=== PATIENT | female | born 1960 | race Caucasian/White ===

== ENCOUNTER 2019-08-09 21:22 | Emergency (ER) | payer BC, OTHER ==
--- OUTSIDE RECORDS SUMMARY | 2019-08-09 21:25 | XMS REPORT | Continuity of Care Document ---
:1960 Author Organization [employer] Care Team Providers Name Role Phone [employer] Unavailable Un available Problems Problem Status Onset Classification Date Comments Sourc e Date Reported K21.9 Active 11/19/19 [facility] 17 [place] V76.11 - SCREEN Active 12/26/19 MH O PID MAMMOGRA 13 [place] Laparoscopic Active 01/08/20 Problem 12/06/2016 adjustable gastric 12 [place],M banding H OPID (procedure) [place] Cholecystectomy Active Problem 12/06/2016 MH (procedure) [place],M H OPID [place] Diabetes mellitus Active Problem 12/06/2016 M H (disorder) [facility] ,M H OPID [place] Hypothyroidism Active Problem 12/06/2016 MH (disorder) [facility] ,M H OPID [place] Polycystic ovaries Active Problem 12/06/2016 MH (disorder) [facility] ,M H OPID [place] Medications No Data Provided for This Section Allergies, Adverse Reactions, Alerts Substance Category Reaction Severity Reaction Status Date Comments S ource type Reported codeine Assertion Drug Active allergy [place] Latex Assertion Drug Active allergy [place] penicillins Assertion Drug Active allergy [place] Immunizations No Data Provided for This Section Results No Data Provided for This Section Pathology Reports No Data Provided for This Section Diagnostic Reports Report Value Date Source Barium swallow DX Barium swallow DX 12/03/2016 [facility] CLINICAL HISTORY: 0.6 minute s fluoro time/97.50 mGy - K21.9 Gastro-esophageal reflux disease without esophagitis. COMPARISON: None TECHNIQUE: Thin barium was a dministered with the patient in the upright position and fluoroscopic and video images performed in AP and oblique projections. Bookbinder Chief study demonstrates nor mal orientation and position of the lap band catheter. Phi angle is calculated at 48 degrees on the fluoroscopic spot view but 64 degrees (normal range 4 - 58 degrees) FINDINGS: Patient ingested s oscar contrast barium without difficulty and there is no significant delay in passage of barium from the oropharynx into the distal esophagus. No significant delay in passage of barium past the lap band catheter. There is no dilation of the proximal pouch. IMPRESSION: No fluoroscopic evidence to suggest lap band sli ppage. SL: [id number] Consultation Notes No Data Provided for This Section Discharge Summaries No Data Provided for This Section History and Physicals No Data Provided for This Section Vital Signs No Data Provided for This Section Encounters Location Location Encounter Encounter Reason Attending ADM DC Stat us Source Details Type Number For Provider Date Date Visit [facility] Outpatient [id number] Andrea 12/03 12/04 Maulik Avilais [facility] Procedures No Data Provided for This Section Assessment and Plan No Data Provided for This Section Plan of Care No Data Provided for This Section Social History Social History Date Source No data available for this 12/04/2016 [facility] section Family History No Data Provided for This Section Advance Directives No Data Provided for This Section Functional Status No Data Provided for This Section
--- OUTSIDE RECORDS SUMMARY | 2019-08-09 21:25 | XMS REPORT | Summary of Care ---
:1960 Author Organization [facility] Address [address] [place] [address] Care Team Providers Name Role Phone Pcp, Does Not Have A Primary Care Provider Reason for Visit Reason Comments Refill Request Encounter Details Date Type Department Care Team Description 05/29/2019 Refill [facility] Endocrinology- Doctor Toro mejia, No Refill Request [place] Name Professional [facility] Building [address] [place] [address] [place] [address] [address] [place] [address] Allergies Active Allergy Reactions Severity Noted Date Comments Ciprofloxacin Nausea and/or Vomiting 06/18/2013 Codeine Other - See comments 02/01/2011 FElT SP ACEY Latex Hives 05/17/2011 Penicillins Other - See comments 11/11/2014 Makes s calp burn documented as of this encounter (statuses as of 05/31/2019) Medications Medication Sig Dispensed Refills Start Date End Date Status aspirin 81 mg Take 81 mg by 0 Ac tive tablet mouth daily. Cetirizine (ZYRTEC) Take by 0 Active 10 mg Cap mouth. magnesium oxide 0 06/29/2015 Act bibi (MAG-OX 400) 400 mg tabletIndications: Type 2 diabetes mellitus without complications, Hypothyroidism, unspecified hypothyroidism type, HLD (hyperlipidemia) FLUTICASONE Use in each 0 Activ e PROPIONATE (FLONASE nostril. NASAL) Insulin [place], Use 1 needle 1 Box 3 05/01/2018 Active Disposable, (RICARDO daily PEN NEEDLE) 32 gauge x 5/32" NdleIndications: Type 2 diabetes mellitus without complication, with long-term current use of insulin ONETOUCH ULTRA BLUE Use as 300 Strip 1 10/26/2018 Active TEST STRIP strip directed, TID, DX:E11.9 blood sugar Use as 200 Strip 2 10/28/2018 Active diagnostic directed TID (FREESTYLE LITE DX: E11.9 STRIPS) strip metFORMIN 500 mg TAKE 2 360 tablet 1 02/17/2019 A ctive tabletIndications: TABLETS TWICE Type 2 diabetes A DAY WITH mellitus without MEALS complication, with long-term current use of insulin NATEGLINIDE 120 mg TAKE 1 TABLET 270 tablet 3 04/27/2019 Active tabletIndications: THREE TIMES A Type 2 diabetes DAY BEFORE mellitus without MEALS complication, with long-term current use of insulin LANTUS SOLOSTAR inject 32 30 mL 1 05/05/2019 Act bibi U-100 INSULIN 100 Units under unit/mL (3 mL) the skin injectionIndication daily. s: Type 2 diabetes mellitus without complication, with long-term current use of insulin levothyroxine 150 Take 1 tablet 90 tablet 0 05/31/2019 Active mcg by mouth tabletIndications: every Hypothyroidism, morning. unspecified type levothyroxine 150 Take 1 tablet 90 tablet 0 03/19/2019 0 Discontinued mcg by mouth 20 (Reorder) tabletIndications: every Hypothyroidism, morning. 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 documented as of this encounter Last Filed Vital Signs Not on filedocumented in this encounter Plan of Treatment Date Type Specialty Care Team Description 09/24/2019 Office Visit Endocrinology Diabetes & Deepak William MD Metabolism [address] [address] 15 [phone] Health Maintenance Due Date Last Done Comments HEPATITIS C (HCV) SCREEN 1960 PNEUMOCOCCAL 0-64 YEARS COMBINED 12/04/1965 SERIES (1 of 1 - PPSV23) EYE EXAM 12/04/1969 DTaP,Tdap,and Td Vaccines (1 - 12/04/1970 Tdap) PAP SMEAR 12/04/1980 Breast Cancer Screening 1999 (MAMMOGRAM) COLONOSCOPY 12/04/2009 Zoster Recombinant Vaccine 12/04/2009 (SHINGRIX) (1 of 2) INFLUENZA VACCINE (#1) 2018 HgA1C 07/24/2019 01/22/2019, 09/18/2018, 05/01/2018, Additional history exists CREATININE (SERUM) 03/24/2020 03/24/2019, 10/24/2017, 02/28/2015, Additional history exists LDL-C 03/24/2020 03/24/2019, 10/24/2017, 02/28/2015, Additional history exists URINE MICROALBUMIN 03/24/2020 03/24/2019, 10/24/2017, 02/28/2015, Additional history exists FOOT EXAM 05/20/2020 05/21/2019, 05/21/2019, 01/22/2019, Additional history exists documented as of this encounter Results Not on filedocumented in this encounter Visit Diagnoses Diagnosis Hypothyroidism, unspecified type documented in this encounter Insurance Payer Benefit Plan / Group Subscriber ID Effective Dates Phone Address Type [employer] [id number] 2019-Present PPO documented as of this encounter Advance Directives Type Date Recorded 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
--- OUTSIDE RECORDS SUMMARY | 2019-08-09 21:25 | XMS REPORT | Continuity of Care Document ---
:1960 Author Organization [facility] t Address [address] [place] [address] Care Team Providers Name Role Phone Sid JENSEN, H Attending Clinician Doctor Unassigned, Name Attending Clinician Unavailable Delilah Sharma Attending Clinician Problems Condition Condition Condition Status Onset Resolution Last Treating Co mments Source Name Details Category Date Date Treatment Clinician Date K21.9 Diagnosis Active 2016-022016-12-03 Mem oria 0-09 13:39:00 l K21.9 00:00: [place] 00 Active 11/18/2016 [place] V76.11 - Diagnosis Active 2012-022013-10-04 M emoria SCREEN - 02:11:00 l MAMMOGRA V76.11 - 00:01: Herm carlos alberto SCREEN 00 MAMMOGRA Active 12/25/2012 BRIAN Aspen Laparoscop Problem Active 2011-022016-12-06 M emoria ic 03-09 00:53:51 l adjustable 00:00: Shane n gastric Laparoscop 00 banding ic (procedure adjustable ) gastric banding (procedure ) Active 01/08/2012 Problem 12/06/2016 [facility] OPIConnie Aspen Cholecyste Problem Active 2016-12-06 M emoria ctomy 00:53:51 l (procedure Shane n ) Cholecyste ctomy (procedure ) Active Problem 12/06/2016 [facility] BRIAN Aspen Diabetes Problem Active 2016-12-06 Mem oria mellitus 00:53:51 l (disorder) Diabetes He rmann mellitus (disorder) Active Problem 12/06/2016 [facility] Hypothyroi Problem Active 2016-12-06 M emoria dism 00:53:51 l (disorder) Shane peralta Hypothyroi dism (disorder) Active Problem 12/06/2016 [facility] Polycystic Problem Active 2016-12-06 M emoria ovaries 00:53:51 l (disorder) Shane peralta Polycystic ovaries (disorder) Active Problem 12/06/2016 [facility] BRIAN Aspen Allergies, Adverse Reactions, Alerts Allergy Allergy Status Severity Reaction(s) Onset Inactive Treating Comm ents Source Name Type Date Date Clinician codeine codeine Active Memoria l Maulik Latex Latex Active Memoria l Maulik penicill penicill Active Memori a ins ins l Maulik Social History Social Habit Start Date Stop Date Quantity Comments Source Social History 2016-12-04 2016-12-04 [facility] patrica 04:59:00 04:59:00 Medications This patient has no known medications. Procedures This patient has no known procedures. Encounters Start End Encounter Admission Attending Care Care Encounter Source Date/Time Date/Time Type Type Clinicians Facility Department ID 2019-07-26 2019-07-26 Refill Sid [facility] [id number] 00:00:00 00:00:00 Deepak Santacruz [id number] [place] [id number] Professio [phone] [facility] 2019-05-29 2019-05-29 Refill Doctor [facility] [id number] 00:00:00 00:00:00 Unassigned, Noam [id number] [place] [id number] Professio [phone] [facility] 2019-05-21 2019-05-21 Telemedici Sid [facility] [id number] 08:13:54 17:11:34 ne Visit Deepak Santacruz [id number] [place] [id number] Professio [phone] [facility] 2019-05-05 2019-05-05 Patient Sid IDIGLESIA [id number] 00:00:00 00:00:00 Secure Msg Deepak Santacruz [id number] [place] [id number] Professio [phone] [facility] 2019-04-28 2019-04-28 Patient Sid [facility] [id number] 00:00:00 00:00:00 Secure Msg Deepak Santacruz [id number] [place] [id number] Professio [phone] [facility] 2019-04-26 2019-04-26 [facility] [id number] 00:00:00 00:00:00 Deepak Santcaruz [id number] [place] [id number] Professio [phone] [address] 2019-03-24 2019-03-24 Orders ROBIN Lau [id number] 00:00:00 00:00:00 Only Deepak H AMBER [id number] [facility]PITAL [phone] [id number] 2019-03-17 2019-03-17 [facility] [id number] 00:00:00 00:00:00 Deepak Santacruz [id number] [place] [id number] Professio [phone] [address] 2019-03-04 2019-03-04 Orders Doctor KELLY [id number] 00:00:00 00:00:00 Only Unassigned, AMBER [id number] [place] [facility] [phone] [id number] 2018-10-30 2018-10-30 Telephone Sid [facility] [id number] 00:00:00 00:00:00 Deepak Santacruz [id number] [place] [id number] Professio [phone] [facility] 2018-10-28 2018-10-28 Telephone Sid [facility] [id number] 00:00:00 00:00:00 Deepak Santacruz [id number] [place] [id number] Professio [phone] [address] 2018-10-23 2018-10-23 [facility] [id number] 00:00:00 00:00:00 Deepak Santacruz [id number] [place] [id number] Professio [phone] [address] 2018-10-22 2018-10-22 [facility] [id number] 00:00:00 00:00:00 Deepak Santacruz [id number] [place] [id number] Professio [phone] [address] 2018-10-15 2018-10-15 [facility] [id number] 00:00:00 00:00:00 Deepak Santacruz [id number] [place] [id number] Professio [phone] [address] 2018-09-18 2018-09-18 [facility] [id number] 15:33:10 17:19:59 Visit Deepak Santacruz [id number] [place] [id number] Professio [phone] [address] 2016-12-03 2016-12-03 Outpatient KORY Sharma [place] [id number] 13:32:00 23:59:00 Andrea Mazariegos 2012-12-23 2012-12-23 Outpatient YESIKAIE YESIKAIE [id number] [facility] 10:29:00 23:59:00 02 Outpat i ent Imaging [place] d Results This patient has no known results.
--- OUTSIDE RECORDS SUMMARY | 2019-08-09 21:25 | XMS REPORT | Summary of Care ---
:1960 Author Organization [facility] Address [address] [place] [address] Care Team Providers Name Role Phone Pcp, Does Not Have A Primary Care Provider Reason for Visit Reason Comments Diabetes Mellitus II Encounter Details Date Type Department Care Team Description 05/21/2019 Telemedicine Visit [facility] Deepak Lau Type 2 diabetes mellitus without complication, with long-term current use of insulin (Primary Dx); Endocrinology- HMD Hypothyroidism, unspecified type; [address] Hyperlipidemia, unspecified hyperlipidemia type Professional [address] Office Building [place] [address] [place], [place] [address] [address] [place], [place] [phone] Allergies Active Allergy Reactions Severity Noted Date Comments Ciprofloxacin Nausea and/or Vomiting 06/18/2013 Codeine Other - See comments 02/01/2011 FElT SP ACEY Latex Hives 05/17/2011 Penicillins Other - See comments 11/11/2014 Makes s calp burn documented as of this encounter (statuses as of 06/20/2019) Medications Medication Sig Dispensed Refills Start Date [...] Activ e PROPIONATE (FLONASE nostril. 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 If your sugars are still above 200, increase to 34 units daily. Continue Starlix and metformin at the same dose. It's important to work on physical activity and eating habits. Next visit, we may consider using mealtime insulin. documented in this encounter Progress Notes Deepak Lau MD - 05/21/2019 2:00 PM CDT Chief Complaint Patient presents with Diabetes Mellitus II Verbal consent obtained from Sandy Mendoza for telehealth services provided below for 20 minutes. Communication with patient was conducted via telephone. Patient was at home, I was in the [place] clinic. HPI:Sandy Mendoza is a 58 year old female following up on diabetes type 2. She also has hypertension, hyperlipidaemia (declines statin) and hypothyroidism. She is on Lantus 30 units daily. She is also taking metformin 1000 mg twice daily and nateglinide 120 mg thrice daily with meals. BG's are in the mid to upper 100s. No hypoglycaemia. She reports continued fluctuation in her eating habits. No walking. Last Lab Results Health Maintenance Due POCT HBA1C (%) Date Value 01/22/2019 10.1 (A) Diabetes related Health Maintenance Due Topic Date Due EYE EXAM 12/04/1969 Previous Pneumococcal / Influenza Immunizations No immunizations on file. 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 None Recent Ophthalmology Visits None CREATININE-Q (mg/dL) Date Value 03/24/2019 0.63 MICROALBUMIN-Q (mg/dL) Date Value 03/24/2019 5.1 CHOLESTEROL, TOTAL-Q (mg/dL) Date Value 03/24/2019 231 (H) TRIGLYCERIDES-Q (mg/dL) Date Value 03/24/2019 234 (H) [id number]-H (mg/dL (calc)) Date Value 03/24/2019 145 (H) Diabetes Relevant Medication Classes Last refreshed: 05/31/2019 10:15 PM: Prescribed SHITAL inhibitor No Last refreshed: 05/31/2019 10:15 PM: Prescribed ARBs No Last refreshed: 05/31/2019 10:15 PM: Prescribed statins No Last refreshed: 05/31/2019 10:15 PM: Prescribed antiplatelets No Last refreshed: 05/31/2019 10:15 PM: Prescribed aspirin Yes Last refreshed: 05/31/2019 10:15 PM: On Fibrates No Current as of: 05/31/2019 10:15 PM PMHx: Past Medical History: Diagnosis Date Other and unspecified hyperlipidemia Type II or unspecified type diabetes mellitus without mention of complication, not stated as uncontrolled Unspecified hypothyroidism PSurgical Hx: Past Surgical History: Procedure Laterality Date OPEN CHOLECYSTECTOMY 2008 Family Hx: Family History Problem Relation Age of Onset Diabetes Mother Diabetes Father Heart Father Stroke Maternal Grandmother Social Hx: Social History Tobacco Use Smoking status: Never Smoker Smokeless tobacco: Never Used Substance Use Topics Alcohol use: Yes Alcohol/week: 0.8 standard drinks Types: 1 drink(s) per week Drug use: No ROS: Gen: Weight lability Eyes: Glasses ENT: Negative CV: negative Resp: Negative GI: Negative Musc: Negative Endo: As above PE: No exam--telemedicine. Recent Labs 01/22/19 1549 [id number] 10.1* Assessment / Plan: ICD-10-CM ICD-9-CM 1. Type 2 diabetes mellitus without complication, with long-term current use of insulin E11.9 250.00 Z79.4 V58.67 2. Hypothyroidism, unspecified type E03.9 244.9 3. Hyperlipidemia, unspecified hyperlipidemia type E78.5 272.4 Still uncontrolled due to lack of lifestyle modifications Increase Basaglar to 32 units daily. Consider mealtime insulin next visit. Continue metformin and nateglinide at the same dose. Emphasized lifestyle modifications She reports BP is okay at home. Patient consistently declines statins. Emphasized lifestyle modifications. No orders of the defined types were placed in this encounter. documented in this encounter Plan of Treatment Date Type Specialty Care Team Description 09/24/2019 Office Visit Endocrinology Diabetes & Deepak William MD Metabolism [address] [place] [address] 15 [phone] Health Maintenance Due Date Last Done Comments HEPATITIS C (HCV) SCREEN 1960 PNEUMOCOCCAL 0-64 YEARS COMBINED 12/04/1965 SERIES (1 of 1 - PPSV23) EYE EXAM 12/04/1969 DTaP,Tdap,and Td Vaccines (1 - 12/04/1970 Tdap) PAP SMEAR 12/04/1980 Breast Cancer Screening 1999 (MAMMOGRAM) COLONOSCOPY 12/04/2009 Zoster Recombinant Vaccine 12/04/2009 (SHINGRIX) (1 of 2) HgA1C 07/24/2019 01/22/2019, 09/18/2018, 05/01/2018, Additional history exists INFLUENZA VACCINE (Season Ended) 2019 CREATININE (SERUM) 03/24/2020 03/24/2019, 10/24/2017, 02/28/2015, Additional history exists LDL-C 03/24/2020 03/24/2019, 10/24/2017, 02/28/2015, Additional history exists URINE MICROALBUMIN 03/24/2020 03/24/2019, 10/24/2017, 02/28/2015, Additional history exists FOOT EXAM 05/20/2020 05/21/2019, 05/21/2019, 01/22/2019, Additional history exists documented as of this encounter Results Not on filedocumented in this encounter Visit Diagnoses Diagnosis Type 2 diabetes mellitus without complic ation, with long-term current use of insulin - Primary Hypothyroidism, unspecified type Hyperlipidemia, unspecified hyperlipidem ia type documented in this encounter documented as of this encounter Advance Directives Type Date Recorded 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
--- OUTSIDE RECORDS SUMMARY | 2019-08-09 21:26 | XMS REPORT | Summary of Care ---
:1960 Author Organization [facility] Address [address] [place] [id number] Care Team Providers Name Role Phone Pcp, Does Not Have A Primary Care Provider Reason for Visit Reason Comments Refill Request Encounter Details Date Type Department Care Team Description 07/26/2019 Refill [facility] Endocrinology- Deepak Benitez MD Refill Request [address] [address] [address] [place] [address] [place] [address] [phone] Allergies Active Allergy Reactions Severity Noted Date Comments Ciprofloxacin Nausea and/or Vomiting 06/18/2013 Codeine Other - See comments 02/01/2011 FElT SP ACEY Latex Hives 05/17/2011 Penicillins Other - See comments 11/11/2014 Makes s calp burn documented as of this encounter (statuses as of 07/26/2019) Medications Medication Sig Dispensed Refills Start Date [...] 0 Activ e PROPIONATE (FLONASE nostril. NASAL) ONETOUCH ULTRA BLUE Use as 300 Strip [...] mouth tabletIndications: every Hypothyroidism, morning. unspecified type Insulin [place], Use 1 needle 1 Box 1 07/26/2019 Active Disposable, (RICARDO daily. PEN NEEDLE) 32 DX:E11.9 gauge x 5/32" NdleIndications: Type 2 diabetes mellitus without complication, with long-term current use of insulin Insulin [place], Use 1 needle 1 Box 3 05/01/2018 07/26/19 Discontinued Disposable, (RICARDO daily 20 (R eorder) PEN NEEDLE) 32 gauge x 5/32" NdleIndications: Type 2 diabetes mellitus without complication, with long-term current use of insulin documented as of this encounter (statuses as of 07/26/2019) Active Problems Problem Noted Date Hypothyroidism 07/28/2015 Essential hypertension 07/28/2015 HLD (hyperlipidemia) 07/28/2015 Elevated blood pressure 07/28/2015 Type 2 diabetes mellitus without complications 012 Overview: ICD10 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 documented as of this encounter (statuses as of 07/26/2019) Social History Tobacco Use Types Packs/Day Years [...] & Deepak William MD Metabolism [address] [address] [phone] Health Maintenance Due Date Last Done Comments [...] history exists INFLUENZA VACCINE (Season Ended) 2019 Depression Screening 01/23/2020 01/22/2019 FOOT EXAM 01/23/2020 01/22/2019, 01/22/2019, 09/18/2018, Additional history exists CREATININE (SERUM) 03/24/2020 03/24/2019, 10/24/2017, 02/28/2015, Additional history exists LDL-C 03/24/2020 03/24/2019, 10/24/2017, 02/28/2015, Additional history exists URINE MICROALBUMIN 03/24/2020 03/24/2019, 10/24/2017, 02/28/2015, Additional history exists documented as of this encounter Results Not on filedocumented in this encounter Visit Diagnoses Diagnosis Type 2 diabetes mellitus without complic ation, with long-term current use of insulin documented in this encounter Insurance Payer Benefit Plan / Group Subscriber ID Effective Dates Phone Address Type [employer] AN Just Above Cost [id number] 2019-Present PPO documented as of this encounter Advance Directives Type Date Recorded 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
[2019-08-09 22:24] LABS: Absolute Lymphocytes (CBC) 2.3 K/uL (0.7-4.9); Basophils % 1.2 % (0-1.3); Hematocrit 46.4 % (36.0-45.0); Lymphocytes % 23.7 % (15.3-44.8); MPV 7.4 fL (7.6-11.3); RBC Red Blood Cell Count 5.29 M/uL (3.86-4.86)
[2019-08-09 22:27] LABS: Protime INR 0.81
[2019-08-09 23:11] LABS: ALT/SGPT 58 U/L (12-78); Albumin 4.4 g/dL (3.4-5.0); Alkaline Phosphatase 128 U/L (45-117); BUN Blood Urea Nitrogen 15 mg/dL (7-18); Bicarbonate 24 mmol/L (21-32); Bilirubin Direct 0.1 mg/dL (0-0.2); Bilirubin Total 0.4 mg/dL (0.2-1.0); Glucose Level 350 mg/dL (74-106); NT PRO-BNP 24 pg/mL (<125); Potassium 4.1 mmol/L (3.5-5.1); Protein, Total 8.5 g/dL (6.4-8.2); Sodium Level 137 mmol/L (136-145); Thyroid Stimulating Hormone 0.363 uIU/mL (0.360-3.740); Troponin (Emerg Dept Use Only) < 0.02 ng/mL (0.0-0.045)
[2019-08-09 23:12] LABS: AST/SGOT 38 U/L (15-37); Magnesium 1.8 mg/dL (1.8-2.4)
--- NOTE | 2019-08-10 00:22 | ER ---
Nurse's Notes [facility] Name: Sandy Mendoza Age: 58 yrs Sex: Female : 1960 Arrival Date: 08/09/2019 Time: 21:25 Bed 8 Private MD: Diagnosis: Chest pain, unspecified;Shortness of breath Presentation: 08/08 21:28 Chief complaint: Patient states: SOB and chest pressure for 1 month. States she is ll1 tired of dealing with it, so she came in. 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 Coronavirus screen: Proceed with normal triage. Patient denies a cough. Patient reports shortness of breath or difficulty breathing. Patient denies measured and/or subjective temperature greater than 100.4F prior to today's visit. Patient denies travel on a cruise ship or to a country the [facility] [place] currently [place] as an affected area. Patient denies contact with known and/or suspected case of COVID-19. Ebola Screen: Patient denies travel to an Ebola-affected area in the 21 days before illness onset. Initial Sepsis Screen: Does the patient meet any 2 criteria? HR > 90 bpm. No. Patient's initial sepsis screen is negative. Risk Assessment: Do you want to hurt yourself or someone else? Patient reports no desire to harm self or others. Onset of symptoms was July 09, 2019. 21:28 Method Of Arrival: Ambulatory ll1 21:28 Acuity: WILLEM 2 ll1 22:10 Initial Sepsis Screen: Does the patient have a suspected source of infection? No. rv Patient's initial sepsis screen is negative. Triage Assessment: 22:10 General: Appears comfortable. Respiratory: Reports shortness of breath on exertion rv Onset: The symptoms/episode began/occurred yesterday, the patient has mild shortness of breath. Historical: - Allergies: 21:31 PENICILLINS; ll1 21:31 Latex, Natural Rubber; ll1 21:31 Sulfa (Sulfonamide Antibiotics); ll1 21:31 some antibiotics; ll1 - PMHx: 21:31 Diabetes - NIDDM; Hypothyroidism; ll1 - PSHx: 21:31 Cholecystectomy; ll1 - Immunization history:: Flu vaccine is not up to date. - Social history:: Smoking status: Patient denies any tobacco usage or history of. Patient/guardian denies using alcohol, street drugs, tobacco products. Screenin:10 Abuse screen: Denies threats or abuse. Denies injuries from another. Nutritional rv screening: No deficits noted. Tuberculosis screening: No symptoms or risk factors identified. Fall Risk None identified. Assessment: 22:10 General: Appears comfortable, Behavior is calm, cooperative. Pain: Denies pain. Neuro: rv Level of Consciousness is awake, alert, obeys commands, Oriented to person, place, time, situation. Cardiovascular: Patient's skin is warm and dry. Rhythm is sinus rhythm. Respiratory: Airway is patent Respiratory effort is even, unlabored, Respiratory pattern is regular, symmetrical. Derm: Skin is intact. 22:11 Respiratory: Breath sounds are clear bilaterally. rv 22:48 Reassessment: Patient is alert, oriented x 3, equal unlabored respirations, skin rv warm/dry/pink. Patient denies pain at this time. Vital Signs: 21:28 BP 163 / 99; Pulse 118; Resp 18; Temp 97.5; Pulse Ox 95% ; Pain 6/10; ll1 22:48 BP 131 / 81; Pulse 98; Resp 13; Pulse Ox 96% on R/A; rv ED Course: 21:25 Patient arrived in ED. cl3 21:30 Triage completed. ll1 21:31 Arm band placed on Patient placed in an exam room, on a stretcher. ll1 21:34 Rodger Bennett PA is PHCP. jr8 21:34 Con Rushing MD is Attending Physician. jr8 21:50 Inserted saline lock: 20 gauge in right forearm, using aseptic technique. ,using rv aseptic technique. by RODGER BENNETT Blood collected. 21:59 Nicolas Torrez, RN is Primary Nurse. ao 22:10 Patient has correct armband on for positive identification. Placed in gown. Bed in low rv position. Call light in reach. Side rails up X 1. radiation monitor on. Pulse ox on. NIBP on. 22:11 No provider procedures requiring assistance completed. rv 22:36 XRAY Chest (1 view) In Process Unspecified. EDMS 08/09 00:20 Urbano Mistry MD is Referral Physician. jr8 00:39 IV discontinued, intact, bleeding controlled, No redness/swelling at site. Pressure ao dressing applied. Administered Medications: No medications were administered Outcome: 00:20 Discharge ordered by MD. trejo 00:39 Discharged to home ambulatory. ao 00:39 Condition: stable 00:39 Discharge instructions given to patient, Instructed on discharge instructions, follow up and referral plans. Demonstrated understanding of instructions, follow-up care. 00:39 Patient left the ED. ao Signatures: Dispatcher [employer] EDMS Rodger Bennett PA PA jr8 Nicolas Torrez RN RN Andrea King RN RN Richmond Lin 3 Leanne Lee RN RN ll1
--- NOTE | 2019-08-10 00:22 | EDPHYS ---
Physician Documentation [facility] Name: Sandy Mendoza Age: 58 yrs Sex: Female : 1960 Arrival Date: 08/09/2019 Time: 21:25 Bed 8 Private MD: ED Physician Con Rushing HPI: 08/08 23:30 This 58 yrs old Female presents to ER via Ambulatory with complaints of jr8 Shortness Of Breath, Chest Pressure. 23:30 The patient has shortness of breath with light activity. Onset: The symptoms/episode jr8 began/occurred gradually, last several weeks. Duration: The symptoms are intermittent. The patient's shortness of breath is aggravated by exertion. Associated signs and symptoms: Pertinent positives: chest pain. Severity of symptoms: At their worst the symptoms were moderate in the emergency department the symptoms have improved. The patient has not experienced similar symptoms in the past. The patient has not recently seen a physician. Patient stated that she noticed shortness of breath with exertion for past several weeks. Stated that within past few days noticed chest pressure with it. Denies cardiac history. Came today because she has not had chest pressure in past . Historical: - Allergies: 21:31 PENICILLINS; ll1 21:31 Latex, Natural Rubber; ll1 21:31 Sulfa (Sulfonamide Antibiotics); ll1 21:31 some antibiotics; ll1 - PMHx: 21:31 Diabetes - NIDDM; Hypothyroidism; ll1 - PSHx: 21:31 Cholecystectomy; ll1 - Immunization history:: Flu vaccine is not up to date. - Social history:: Smoking status: Patient denies any tobacco usage or history of. Patient/guardian denies using alcohol, street drugs, tobacco products. ROS: 08/09 00:18 Eyes: Negative for injury, pain, redness, and discharge, ENT: Negative for injury, jr8 pain, and discharge, Neck: Negative for injury, pain, and swelling, Abdomen/GI: Negative for abdominal pain, nausea, vomiting, diarrhea, and constipation, Back: Negative for injury and pain, MS/Extremity: Negative for injury and deformity, Skin: Negative for injury, rash, and discoloration, Neuro: Negative for headache, weakness, numbness, tingling, and seizure. Cardiovascular: Positive for chest pain, Negative for edema, orthopnea, palpitations, paroxysmal nocturnal dyspnea. Respiratory: Positive for shortness of breath. Exam: 00:18 Eyes: Pupils equal round and reactive to light, extra-ocular motions intact. Lids and jr8 lashes normal. Conjunctiva and sclera are non-icteric and not injected. Cornea within normal limits. Periorbital areas with no swelling, redness, or edema. ENT: Nares patent. No nasal discharge, no septal abnormalities noted. Tympanic membranes are normal and external auditory canals are clear. Oropharynx with no redness, swelling, or masses, exudates, or evidence of obstruction, uvula midline. Mucous membranes moist. Neck: Trachea midline, no thyromegaly or masses palpated, and no cervical lymphadenopathy. Supple, full range of motion without nuchal rigidity, or vertebral point tenderness. No Meningismus. Cardiovascular: Regular rate and rhythm with a normal S1 and S2. No gallops, murmurs, or rubs. Normal PMI, no JVD. No pulse deficits. Respiratory: Lungs have equal breath sounds bilaterally, clear to auscultation and percussion. No rales, rhonchi or wheezes noted. No increased work of breathing, no retractions or nasal flaring. Abdomen/GI: Soft, non-tender, with normal bowel sounds. No distension or tympany. No guarding or rebound. No evidence of tenderness throughout. Back: No spinal tenderness. No costovertebral tenderness. Full range of motion. Skin: Warm, dry with normal turgor. Normal color with no rashes, no lesions, and no evidence of cellulitis. MS/ Extremity: Pulses equal, no cyanosis. Neurovascular intact. Full, normal range of motion. Neuro: Awake and alert, GCS 15, oriented to person, place, time, and situation. Cranial nerves II-XII grossly intact. Motor strength 5/5 in all extremities. Sensory grossly intact. Cerebellar exam normal. Normal gait. Vital Signs: 08/08 21:28 BP 163 / 99; Pulse 118; Resp 18; Temp 97.5; Pulse Ox 95% ; Pain 6/10; ll1 22:48 BP 131 / 81; Pulse 98; Resp 13; Pulse Ox 96% on R/A; rv MDM: 21:34 Patient medically screened. jr8 08/09 00:18 Data reviewed: vital signs, nurses notes, lab test result(s), EKG, radiologic studies, [facility] plain films, and as a result, I will discharge patient. Data interpreted: Pulse oximetry: on room air is 96 %. Interpretation: normal. 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 Special discussion: Based on the patient's history, exam, and Dx evaluation, there is no indication for emergent intervention or inpatient Tx. It is understood by the patient/guardian that if the Sx's persist or worsen they need to return immediately for re-evaluation. 08/08 21:35 Order name: Basic Metabolic Panel; Complete Time: 23:13 [facility] 08/08 21:35 Order name: CBC with Diff; Complete Time: 23:13 [facility] 08/08 21:35 Order name: LFT's; Complete Time: 23:13 [facility] 08/08 21:35 Order name: Magnesium; Complete Time: 23:13 [facility] 08/08 21:35 Order name: NT PRO-BNP; Complete Time: 23:13 [facility] 08/08 21:35 Order name: PT-INR; Complete Time: 23:13 08/08 21:35 Order name: Troponin (emerg Dept Use Only); Complete Time: 23:13 [facility] 08/08 21:35 Order name: XRAY Chest (1 view) [facility] 08/08 21:35 Order name: EKG; Complete Time: 21:36 08/08 21:35 Order name: DD; Complete Time: 23:13 [facility] 08/08 22:21 Order name: T4 Free; Complete Time: 23:13 [facility] 08/08 22:21 Order name: Thyroid Stimulating Hormone; Complete Time: 23:13 [facility] 08/08 21:35 Order name: Cardiac monitoring; Complete Time: 22:11 08/08 21:35 Order name: EKG - Nurse/Tech; Complete Time: 22:11 [facility] 08/08 21:35 Order name: IV Saline Lock; Complete Time: 22:11 08/08 21:35 Order name: Labs collected and sent; Complete Time: 22:12 jr8 08/08 21:35 Order name: O2 Per Protocol; Complete Time: 22:12 8 08/08 21:35 Order name: O2 Sat Monitoring; Complete Time: 22:12 jr8 Administered Medications: No medications were administered Disposition: : Co-signature as Attending Physician, Con Rushing MD. [facility] Disposition: 08/10/19 00:20 Discharged to Home. Impression: Chest pain, unspecified, Shortness of breath. - Condition is Stable. - Discharge Instructions: Nonspecific Chest Pain, Shortness of Breath. - Medication Reconciliation Form, Thank You Letter, Antibiotic Education, Prescription Opioid Use form. - Follow up: Urbano Mistry MD; When: 1 - 2 days; Reason: Recheck today's complaints, Continuance of care, Re-evaluation by your physician. - Problem is new. - Symptoms have improved. Signatures: Dispatcher [employer] [facility] Rodger Rachel PA PA jr8 Nicolas Torrez RN RN Leanne Haider RN RN [facility] Con Rushing MD MD [facility] Corrections: (The following items were deleted from the chart) 08/08 22:21 22:02 THYROID STIMULAT HORMONE+C.LAB.BRZ ordered. [facility] 22:21 22:02 T4 FREE+C.LAB.BRZ ordered. [facility] 08/09 00:19 08/08 23:30 Patient stated that she noticed shortness of breath . jr8 jr8 08/09 00:39 00:20 08/10/2019 00:20 Discharged to Home. Impression: Chest pain, unspecified; ao Shortness of breath. Condition is Stable. Forms are Medication Reconciliation Form, Thank You Letter, Antibiotic Education, Prescription Opioid Use. Follow up: Urbano Mistry; When: 1 - 2 days; Reason: Recheck today's complaints, Continuance of care, Re-evaluation by your physician. Problem is new. Symptoms have improved. jr8
[2019-08-10 01:13] VITALS: TEMP 97.5
[2019-08-10 01:15] VITALS: BP 131/81; O2SAT 96
--- NOTE | 2019-08-10 08:02 | RAD REPORT ---
EXAM DESCRIPTION: Nora Single View08/09/2019 10:36 pm CLINICAL HISTORY: Chest pain COMPARISON: none FINDINGS: The lungs appear clear of acute infiltrate. The heart is normal size IMPRESSION: No acute abnormalities displayed
--- NOTE | 2019-08-11 07:20 | EKG ---
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
== END 2019-08-10 00:39 | disposition home or self-care (01) ==
LOC: ER 21:22
DX: R07.9 Chest pain, unspecified (principal); E11.9 Type 2 diabetes mellitus without complications; Z88.0 Allergy status to penicillin; Z88.1 Allergy status to other antibiotic agents; Z88.2 Allergy status to sulfonamides; Z91.040 Latex allergy status
CPT/HCPCS: 36415; 71045; 80048; 80076; 83735; 83880; 84439; 84443; 84484; 85025; 85379; 85610; 93005; 99284

== ENCOUNTER 2020-08-14 10:05 | Emergency (ER) | payer BC, OTHER ==
--- OUTSIDE RECORDS SUMMARY | 2020-08-14 11:07 | XMS REPORT | Continuity of Care Document ---
:1960 Author Organization [facility] t Address [address] [place] [address] Care Team Providers Name Role Phone Donell ESTEVES Attending Clinician Delilah Sharma Attending Clinician Problems Condition Condition Condition Status Onset Resolution Last Treating Co mments Source Name Details Category Date Date Treatment Clinician Date K21.9 Diagnosis Active 2016-022016-12-03 Mem oria 0-09 13:39:00 l K21.9 00:00: [place] 00 Active 11/18/2016 [place] V76.11 - Diagnosis Active 2012-022013-10-04 M emoria SCREEN - 02:11:00 l MAMMOGRA V76.11 - 00:01: Herm carlos alberto SCREEN 00 MAMMOGRA Active 12/25/2012 [place] Laparoscop Problem Active 2011-022016-12-06 M emoria ic 03-09 00:53:51 l adjustable 00:00: Shane n gastric Laparoscop 00 banding ic (procedure adjustable ) gastric banding (procedure ) Active 01/08/2012 Problem 12/06/2016 [facility] Problem Active 2016-12-06 M emoria ctomy 00:53:51 l (procedure Shane n ) Cholecyste ctomy (procedure ) Active Problem 12/06/2016 [facility] Diabetes Problem Active 2016-12-06 Mem oria mellitus 00:53:51 l (disorder) Diabetes He rmann mellitus (disorder) Active Problem 12/06/2016 [facility] Hypothyroi Problem Active 2016-12-06 M emoria dism 00:53:51 l (disorder) Shane n Hypothyroi dism (disorder) Active Problem 12/06/2016 [facility] OPIConnie [place] Polycystic Problem Active 2016-12-06 M emoria ovaries 00:53:51 l (disorder) Shane n Polycystic ovaries (disorder) Active Problem 12/06/2016 [facility] BRIAN [place] Allergies, Adverse Reactions, Alerts Allergy Allergy Status Severity Reaction(s) Onset Inactive Treating Comm ents Source Name Type Date Date Clinician codeine codeine Active Memoria l [place] Latex Latex Active Memoria l Maulik penicill penicill Active Memori a ins ins l Maulik Social History Social Habit Start Date Stop Date Quantity Comments Source Social History 2016-12-04 2016-12-04 [facility] Sunny patrica 04:59:00 04:59:00 Medications This patient has no known medications. Procedures This patient has no known procedures. Encounters Start End Encounter Admission Attending Care Care Encounter Source Date/Time Date/Time Type Type Clinicians Facility Department ID 2020-08-04 2020-08-04 Office Donell [facility] [id number] 14:59:09 15:56:17 Visit Elaine Priddy [id number] [place] [id number] Professio [id number] [facility] 2016-12-03 2016-12-03 Outpatient KORY Sharma [facility] [id number] 13:32:00 23:59:00 Andrea Mazariegos 2012-12-23 2012-12-23 Outpatient [facility] [id number] [facility] 10:29:00 23:59:00 Outpatien Outpatient 02 O utpati t Imaging Imaging ent [facility] Fany beck Results This patient has no known results.
[2020-08-14] MEDS ORDERED: LIDOCAINE 1% W/EPI 1:100,000 MDV 50 ML VIAL ONE (11:17)
[2020-08-14] MEDS ORDERED: MORPHINE 2 MG/ML SYR ONE (11:51)
[2020-08-14] MEDS ORDERED: DOXYCYCLINE 100 MG CAP PO ONE (11:52)
[2020-08-14] MEDS ORDERED: ONDANSETRON 4 MG/2 ML VIAL ONE (11:52)
[2020-08-14] MEDS ORDERED: CLINDAMYCIN 900MG/D5W 900 MG/50 ML IVPB IV ONE (11:52)
[2020-08-14 12:10] LABS: Absolute Lymphocytes (CBC) 1.6 K/uL (0.7-4.9); Basophils % 1.2 % (0-1.3); Hematocrit 40.2 % (36.0-45.0); Lymphocytes % 17.1 % (15.3-44.8); MPV 7.8 fL (7.6-11.3); RBC Red Blood Cell Count 4.68 M/uL (3.86-4.86)
--- NOTE | 2020-08-14 12:21 | EDPHYS ---
Physician Documentation [facility] Name: Sandy Mendoza Age: 59 yrs Sex: Female : 1960 Arrival Date: 08/14/2020 Time: 10:06 Bed 19 Private MD: OUSMANE Physician Sabino Colon HPI: 08/14 11:03 This 59 yrs old Female presents to ER via Ambulatory with complaints of bean Abscess. 11:03 The patient presents with cellulitis of the left gluteal fold, the patient presents bean with a swollen area of the left gluteal fold. Description: erythematous, fluctuant, raised, swollen. Onset: The symptoms/episode began/occurred 3 day(s) ago. Possible cause(s): unknown. Associated signs and symptoms: The patient has no apparent associated signs or symptoms. Severity of symptoms: At their worst the symptoms were moderate, in the emergency department the symptoms are unchanged. The patient has experienced similar episodes in the past, multiple times. Historical: - Allergies: 10:18 Latex, Natural Rubber; jl7 10:18 PENICILLINS; jl7 10:18 some antibiotics; jl7 10:18 Sulfa (Sulfonamide Antibiotics); jl7 - PMHx: 10:18 Diabetes - NIDDM; Hypothyroidism; jl7 - Immunization history:: Adult Immunizations not up to date, Client reports having NOT received the Covid vaccine. - Social history:: Smoking status: Patient denies any tobacco usage or history of. - Family history:: not pertinent. ROS: 11:03 Constitutional: Negative for fever, chills, and weight loss, Eyes: Negative for injury, bean pain, redness, and discharge, ENT: Negative for injury, pain, and discharge, Neck: Negative for injury, pain, and swelling, Cardiovascular: Negative for chest pain, palpitations, and edema, Respiratory: Negative for shortness of breath, cough, wheezing, and pleuritic chest pain, Abdomen/GI: Negative for abdominal pain, nausea, vomiting, diarrhea, and constipation, Back: Negative for injury and pain, : Negative for injury, bleeding, discharge, and swelling, MS/Extremity: Negative for injury and deformity, Neuro: Negative for headache, weakness, numbness, tingling, and seizure, Psych: Negative for depression, anxiety, suicide ideation, homicidal ideation, and hallucinations, Allergy/Immunology: Negative for hives, rash, and allergies, Endocrine: Negative for neck swelling, polydipsia, polyuria, polyphagia, and marked weight changes. 11:03 Skin: Positive for swelling, of the left gluteal fold. Exam: 11:03 Constitutional: This is a well developed, well nourished patient who is awake, alert, bean and in no acute distress. Head/Face: Normocephalic, atraumatic. Eyes: Pupils equal round and reactive to light, extra-ocular motions intact. Lids and lashes normal. Conjunctiva and sclera are non-icteric and not injected. Cornea within normal limits. Periorbital areas with no swelling, redness, or edema. ENT: Nares patent. No nasal discharge, no septal abnormalities noted. Tympanic membranes are normal and external auditory canals are clear. Oropharynx with no redness, swelling, or masses, exudates, or evidence of obstruction, uvula midline. Mucous membranes moist. Neck: Trachea midline, no thyromegaly or masses palpated, and no cervical lymphadenopathy. Supple, full range of motion without nuchal rigidity, or vertebral point tenderness. No Meningismus. Chest/axilla: Normal chest wall appearance and motion. Nontender with no deformity. No lesions are appreciated. Cardiovascular: Regular rate and rhythm with a normal S1 and S2. No gallops, murmurs, or rubs. Normal PMI, no JVD. No pulse deficits. Respiratory: Lungs have equal breath sounds bilaterally, clear to auscultation and percussion. No rales, rhonchi or wheezes noted. No increased work of breathing, no retractions or nasal flaring. Abdomen/GI: Soft, non-tender, with normal bowel sounds. No distension or tympany. No guarding or rebound. No evidence of tenderness throughout. Back: No spinal tenderness. No costovertebral tenderness. Full range of motion. Female : Normal external genitalia. MS/ Extremity: Pulses equal, no cyanosis. Neurovascular intact. Full, normal range of motion. Neuro: Awake and alert, GCS 15, oriented to person, place, time, and situation. Cranial nerves II-XII grossly intact. Motor strength 5/5 in all extremities. Sensory grossly intact. Cerebellar exam normal. Normal gait. Psych: Awake, alert, with orientation to person, place and time. Behavior, mood, and affect are within normal limits. 11:03 Skin: Appearance: Color: normal in color, Temperature: normal temperature, Moisture: normal moisture, petechiae, not noted, ecchymosis, not noted, abscess, that is small, of the left gluteal fold, cellulitis, that is minimal, induration, that is moderate is noted. Vital Signs: 10:16 BP 162 / 99; Pulse 97; Resp 17; Temp 98; Pulse Ox 96% on R/A; Weight 95.25 kg (R); jl7 Height 5 ft. 7 in. (170.18 cm); Pain 08/19; 11:08 BP 165 / 80; Pulse 90; Resp 16; Pulse Ox 98% on R/A; vg1 10:16 Body Mass Index 32.89 (95.25 kg, 170.18 cm) jl7 Procedures: 11:09 I \T\ D: Incision and drainage was performed for an abscess of the left perineal Prepped bean with Betadine, Anesthetized with 10 ml's 1% Lidocaine w/ Epi. Incised with #11 blade. Drained moderate amount Packed with iodoform gauze, Dressing: non-Adherent dressing, the patient tolerated the procedure well. MDM: 10:42 Patient medically screened. [facility] 11:07 Differential diagnosis: abscess. Data reviewed: vital signs, nurses notes. Data [facility] interpreted: pvc monitor: rate is 97 beats/min, rhythm is regular, Pulse oximetry: on room air is 96 %. Test interpretation: by ED physician or midlevel provider:. Counseling: I had a detailed discussion with the patient and/or guardian regarding: the historical points, exam findings, and any diagnostic results supporting the discharge/admit diagnosis, lab results. 08/14 11:03 Order name: CBC with Diff [facility] 08/14 11:03 Order name: Comprehensive Metabolic Panel [facility] 08/14 11:09 Order name: Wound Culture [facility] 08/14 11:03 Order name: Dressing - Wound; Complete Time: 13:05 [facility] 08/14 11:03 Order name: Gloves, Sterile; Complete Time: 11:25 [facility] 08/14 11:03 Order name: Setup Suture Tray; Complete Time: 11: [facility] Administered Medications: 11:34 Drug: Zofran (Ondansetron) 4 mg Route: IVP; Site: right wrist; vg1 13:04 Follow up: Response: No adverse reaction vg1 11:36 Drug: morphine 2 mg Route: IVP; Site: right wrist; vg1 13:05 Follow up: Response: No adverse reaction; Marked relief of symptoms vg1 11:37 Drug: Doxycycline 200 mg Route: PO; vg1 13:05 Follow up: Response: No adverse reaction vg1 12:26 Drug: Clindamycin 900 mg Route: IVPB; Infused Over: 30 mins; Site: right wrist; vg1 13:04 Follow up: IV Status: Completed infusion vg1 13:04 Follow up: Response: No adverse reaction vg1 12:30 Drug: Lidocaine-Epinephrine -1%: (1:100,000) 12 ml Volume: 20 ml; Route: Infiltration; vg1 Disposition Summary: 08/14/20 12:20 Discharge Ordered Location: Home bean Problem: new bean Symptoms: have improved bean Condition: Stable bean Diagnosis - Cutaneous abscess of buttock bean - Type 2 diabetes mellitus with hyperglycemia bean Followup: bean - With: Private Physician - When: 2 - 3 days - Reason: Recheck today's complaints, Continuance of care, Re-evaluation by your physician Followup: bean - With: - When: 2 - 3 days - Reason: Recheck today's complaints, Continuance of care, Re-evaluation by your physician Discharge Instructions: - Discharge Summary Sheet bean - Skin Abscess bean - Type 2 Diabetes Mellitus, Diagnosis, Adult bean - Hyperglycemia bean - Incision and Drainage bean - Skin Abscess, Aeri[place] bean - Blood Glucose Monitoring, Adult bean - Incision and Drainage, Care After bean Forms: - Medication Reconciliation Form [facility] - Thank You Letter [facility] - Antibiotic Education [facility] - Prescription Opioid Use [facility] Prescriptions: - acetaminophen-codeine 300-15 mg Oral tablet - take 2 tablet by ORAL route every 6 hours; 20 tablet; Refills: 0, Product bean Selection Permitted - Clindamycin HCl 300 mg Oral Capsule - take 1 capsule by ORAL route every 6 hours for 10 days; 40 capsule; Refills: 0, [facility] Product Selection Permitted - Doxycycline Hyclate 100 mg Oral Tablet - take 1 tablet by ORAL route every 12 hours; 20 tablet; Refills: 0, Product [facility] Selection Permitted Signatures: Dispatcher [employer] Sabino Foley MD MD cha Leal, Jahala RN RN jl7 Radha Jara RN RN vg1
--- NOTE | 2020-08-14 12:21 | ER ---
Nurse's Notes [facility] Name: Sandy Mendoza Age: 59 yrs Sex: Female : 1960 Arrival Date: 08/14/2020 Time: 10:06 Bed 19 Private MD: Diagnosis: Cutaneous abscess of buttock;Type 2 diabetes mellitus with hyperglycemia Presentation: 08/14 10:16 Chief complaint: Patient states: Right labial abscess x 3 days, reports pain with jl7 sitting. Coronavirus screen: Client denies travel out of the [place] in the last 14 days. At this time, the client does not indicate any symptoms associated with coronavirus-19. Ebola Screen: No symptoms or risks identified at this time. Initial Sepsis Screen: Does the patient meet any 2 criteria? No. Patient's initial sepsis screen is negative. Does the patient have a suspected source of infection? No. Patient's initial sepsis screen is negative. Risk Assessment: Do you want to hurt yourself or someone else? Patient reports no desire to harm self or others. Onset of symptoms was August 11, 2020. Care prior to arrival: None. 10:16 Method Of Arrival: Ambulatory jl7 10:16 Acuity: WILLEM 4 jl7 Historical: - Allergies: 10:18 Latex, Natural Rubber; jl7 10:18 PENICILLINS; jl7 10:18 some antibiotics; jl7 10:18 Sulfa (Sulfonamide Antibiotics); jl7 - PMHx: 10:18 Diabetes - NIDDM; Hypothyroidism; jl7 - Immunization history:: Adult Immunizations not up to date, Client reports having NOT received the Covid vaccine. - Social history:: Smoking status: Patient denies any tobacco usage or history of. - Family history:: not pertinent. Screenin:07 Abuse screen: Denies threats or abuse. Nutritional screening: No deficits noted. vg1 Tuberculosis screening: No symptoms or risk factors identified. Fall Risk No fall in past 12 months (0 pts). No secondary diagnosis (0 pts). IV access (20 points). Ambulatory Aid- None/Bed Rest/Nurse Assist (0 pts). Gait- Normal/Bed Rest/Wheelchair (0 pts) Mental Status- Oriented to own ability (0 pts). Total Hall Fall Scale indicates No Risk (0-24 pts). Assessment: 11:06 General: Appears in no apparent distress. comfortable, Behavior is calm, cooperative. vg1 Pain: Complains of pain in groin Pain currently is 7 out of 10 on a pain scale. Neuro: Level of Consciousness is awake, alert, obeys commands, Oriented to person, place, time, situation. Cardiovascular: Patient's skin is warm and dry. Respiratory: Airway is patent Respiratory effort is even, unlabored. GI: No signs and/or symptoms were reported involving the gastrointestinal system. : No signs and/or symptoms were reported regarding the genitourinary system. EENT: No signs and/or symptoms were reported regarding the EENT system. Derm: Skin is red, Right side of vagina Abscess located on groin Reports pain. Musculoskeletal: Swelling present in groin. 12:26 Reassessment: Patient appears in no apparent distress at this time. No changes from vg1 previously documented assessment. Patient and/or family updated on plan of care and expected duration. Pain level reassessed. Patient is alert, oriented x 3, equal unlabored respirations, skin warm/dry/pink. Pt up for d/c, currently waiting for IV antibiotics to complete Patient states feeling better. 13:06 Reassessment: Patient appears in no apparent distress at this time. Patient and/or iw family updated on plan of care and expected duration. Pain level reassessed. Patient is alert, oriented x 3, equal unlabored respirations, skin warm/dry/pink. Vital Signs: 10:16 BP 162 / 99; Pulse 97; Resp 17; Temp 98; Pulse Ox 96% on R/A; Weight 95.25 kg (R); jl7 Height 5 ft. 7 in. (170.18 cm); Pain 7/10; 11:08 BP 165 / 80; Pulse 90; Resp 16; Pulse Ox 98% on R/A; vg1 10:16 Body Mass Index 32.89 (95.25 kg, 170.18 cm) jl7 ED Course: 10:06 Patient arrived in ED. as 10:18 Triage completed. jl7 10:18 Arm band placed on right wrist. jl7 10:42 Sabino Colon MD is Attending Physician. [facility] 11:06 Radha Jara, RN is Primary Nurse. vg1 11:07 Patient has correct armband on for positive identification. Placed in gown. Bed in low vg1 position. Call light in reach. Side rails up X 1. Adult w/ patient. 12:20 Chano Hummel MD is Referral Physician. [facility] 13:07 No provider procedures requiring assistance completed. IV discontinued, intact, iw bleeding controlled, No redness/swelling at site. Pressure dressing applied. Administered Medications: 11:34 Drug: Zofran (Ondansetron) 4 mg Route: IVP; Site: right wrist; vg1 13:04 Follow up: Response: No adverse reaction vg1 11:36 Drug: morphine 2 mg Route: IVP; Site: right wrist; vg1 13:05 Follow up: Response: No adverse reaction; Marked relief of symptoms vg1 11:37 Drug: Doxycycline 200 mg Route: PO; vg1 13:05 Follow up: Response: No adverse reaction vg1 12:26 Drug: Clindamycin 900 mg Route: IVPB; Infused Over: 30 mins; Site: right wrist; vg1 13:04 Follow up: IV Status: Completed infusion vg1 13:04 Follow up: Response: No adverse reaction vg1 12:30 Drug: Lidocaine-Epinephrine -1%: (1:100,000) 12 ml Volume: 20 ml; Route: Infiltration; vg1 Outcome: 12:20 Discharge ordered by . [facility] 13:07 Discharged to home ambulatory, with family. 13:07 Condition: good 13:07 Discharge instructions given to patient, family, Instructed on discharge instructions, follow up and referral plans. medication usage, Demonstrated understanding of instructions, follow-up care, medications, Prescriptions given X 3. 13:10 Patient left the ED. iw Signatures: Sabino Colon MD MD cha Martinez, Amelia as Williams, Irene, [place] RN iw Karla Deng RN RN jl7 Radha Jara, RN RN vg1
[2020-08-14 12:29] LABS: Albumin 3.9 g/dL (3.4-5.0); Bilirubin Total 0.5 mg/dL (0.2-1.0); Potassium 3.9 mmol/L (3.5-5.1); Protein, Total 7.3 g/dL (6.4-8.2)
[2020-08-14 13:16] VITALS: TEMP 98
[2020-08-14 13:17] VITALS: BP 165/80; O2SAT 98
== END 2020-08-14 13:10 | disposition home or self-care (01) ==
LOC: ER 10:05
PROC: 0J990ZZ Drainage of Buttock Subcutaneous Tissue and Fascia, Open Approach (ICD-10-PCS; principal; 2020-08-14)
DX: L03.317 Cellulitis of buttock (principal); E11.65 Type 2 diabetes mellitus with hyperglycemia; Z88.0 Allergy status to penicillin; Z88.1 Allergy status to other antibiotic agents; Z88.2 Allergy status to sulfonamides; Z91.040 Latex allergy status; Z91.048 Other nonmedicinal substance allergy status
CPT/HCPCS: 96365; 87070; 85025; 36415; 87205; 80053; 96375; 99283; 10060; J2270; J2405